=== PATIENT | female | born 1995 | race Caucasian/White ===

== ENCOUNTER 2018-06-10 15:27 | Outpatient (CLI) | END 2018-06-10 15:28 | disposition home or self-care (01) | LOC: RHC-LAB 15:27 | PROVIDERS: ATTEND Nurse Practitioner Family | DX: F41.9 Anxiety disorder, unspecified (principal); R00.2 Palpitations | CPT/HCPCS: 36415; 80053; 80061; 84443; 85025 ==

== ENCOUNTER 2018-11-11 13:58 | Outpatient (CLI) ==
[2018-11-11 14:23] LABS: URINE PREGNANCY TEST NEGATIVE (NEGATIVE)
--- NOTE | 2018-11-12 09:03 | DI ---
EXAM: Right shoulder three view HISTORY: Pain in right shoulder COMPARISON: None FINDINGS: The bones are normal. The glenohumeral joint and acromioclavicular joint are normal. No focal soft tissue abnormality. Visualized portion of the chest is normal. IMPERSSION: Normal examination.
--- NOTE | 2018-11-12 09:04 | DI ---
EXAM: Left toe first digit three-view HISTORY: Pain in left toe COMPARISON: None FINDINGS: The bones are normal. The joints are normal. No focal soft tissue abnormality. IMPERSSION: Normal examination.
== END 2018-11-11 13:59 | disposition home or self-care (01) ==
LOC: LAB 13:58
PROVIDERS: ATTEND Nurse Practitioner Family
DX: N91.2 Amenorrhea, unspecified (principal); M25.511 Pain in right shoulder; M79.675 Pain in left toe(s)
CPT/HCPCS: 81025